=== PATIENT | female | born 1980 | race Caucasian/White ===

== ENCOUNTER → 2018-08-13 | Outpatient (CLI) | payer BC ==
--- NOTE | 2018-08-13 12:52 | MR ---
EXAMINATION TYPE: MR knee LT wo con DATE OF EXAM: 08/13/2018 COMPARISON: None HISTORY: Left knee pain TECHNIQUE: Multiplanar, multisequence imaging of the left knee is performed without IV contrast. FINDINGS: MEDIAL MENISCUS: Anterior and posterior horns are intact without tear. LATERAL MENISCUS: Anterior horn lateral meniscus is normal. There is increased signal within the post erior horn lateral meniscus may be related to some mild internal derangement. No communication with a n articular surface is evident. CRUCIATE LIGAMENTS: The anterior and posterior cruciate ligaments are intact and unremarkable. COLLATERAL LIGAMENTS: The medial collateral ligament and lateral collateral ligament complex are inta ct and unremarkable. EXTENSOR MECHANISM: Visualized quadriceps and patellar tendons are intact. EFFUSION: No significant suprapatellar joint effusion. POPLITEAL CYST: No popliteal/curiel cyst. TRICOMPARTMENT SPACES: Tricompartment joint spaces appear preserved. CARTILAGE: Preserved BONE MARROW SIGNAL: No focal abnormal marrow signal is appreciated. OTHER: No additional significant abnormality is appreciated. IMPRESSION: Mild internal derangement posterior horn medial meniscus. No communication with an articular surface is evident.
== END | disposition home or self-care (01) ==
LOC: RADMRIMAIN 06:11
PROVIDERS: ATTEND Orthopaedic Surgery
DX: M23.322 Other meniscus derangements, posterior horn of medial meniscus, left knee (principal)

== ENCOUNTER → 2019-01-05 | Outpatient (CLI) | payer OTHER | END | disposition home or self-care (01) | LOC: LABPAT 06:34 | PROVIDERS: ATTEND Orthopaedic Surgery | DX: Z01.812 Encounter for preprocedural laboratory examination (principal); M16.12 Unilateral primary osteoarthritis, left hip | CPT/HCPCS: 87070 ==

== ENCOUNTER → 2019-03-16 | Outpatient (CLI) | payer OTHER ==
[2019-03-16 08:28] LABS: Prothrombin Time 10.8 sec (9.0-12.0)
[2019-03-16 08:39] LABS: Potassium 5.1 mmol/L (3.5-5.1)
[2019-03-16 08:44] LABS: Anisocytosis Slight; Basophils # (A) 0.1 k/uL (0-0.2); Basophils % (A) 1 %; Eosinophils # (A) 0.2 k/uL (0-0.7); Eosinophils % (A) 4 %; HCT 43.7 % (34.0-46.0); HGB 13.7 gm/dL (11.4-16.0); Hypochromasia Moderate; Lymphocytes # (A) 1.6 k/uL (1.0-4.8); Lymphocytes % (A) 27 %; MCH 27.4 pg (25.0-35.0); MCHC 31.4 g/dL (31.0-37.0); MCV 87.3 fL (80.0-100.0); Mean Platelet Volume 8.7; Microcytosis Slight; Monocytes # (A) 0.3 k/uL (0-1.0); Monocytes % (A) 5 %; Neutrophils # (A) 3.7 k/uL (1.3-7.7); Neutrophils % (A) 61 %; Platelet Count 284 k/uL (150-450); Poikilocytosis Slight; RBC 5.01 m/uL (3.80-5.40); RDW 19.9 % (11.5-15.5)
== END | disposition home or self-care (01) ==
LOC: LABPAT 06:37
PROVIDERS: ATTEND Orthopaedic Surgery
DX: Z01.812 Encounter for preprocedural laboratory examination (principal); M16.12 Unilateral primary osteoarthritis, left hip
CPT/HCPCS: 36415; 80051; 85025; 85610; 86850; 86900; 86901

== ENCOUNTER 2019-03-24 06:48 | Day surgery (SDC) | payer OTHER ==
[2019-03-19 08:30] VITALS: BMI 24.2
--- NOTE | 2019-03-23 11:08 | HP ---
HISTORY AND PHYSICAL CHIEF COMPLAINT: Left hip pain. 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 She had surgery when she was a teenager. She has had progressive groin and thigh pain, worse with weightbearing activities. She notes the pain significantly limits her function and activities. She has tried medications with only partial relief. PAST MEDICAL HISTORY: Significant for hypothyroidism, depression, and anemia along with osteoarthritis. PAST SURGICAL HISTORY: Significant for gastric bypass surgery, spinal fusion, and history of fixation of a left slipped capital femoral epiphysis. CURRENT MEDICATIONS: Spironolactone, Synthroid, and Wellbutrin. ALLERGIES: SULFA. FAMILY HISTORY: Negative. SOCIAL HISTORY: Significant for previous tobacco use. 16 POINT REVIEW OF SYSTEMS: Otherwise reviewed and is noncontributory. PHYSICAL EXAMINATION: On examination, the patient is approximately 5 foot 6, 145 pounds of mesomorphic habitus. HEENT: Exam is nonfocal. Neck is supple. Passive motion left hip, flexion 70 degrees, external rotation with the hip flexed 50 degrees, internal rotation -20 degrees with pain. Clinically, she has 3 cm of shortening of the left lower extremity compared to the right. Her distal neurovascular exam appears intact in the lower extremities. X-rays to include AP of the pelvis obtained in the office show severe left hip osteoarthrosis with [id number] changes. Previous screw fixation with deformity of the femoral head and neck are noted. IMPRESSION: 1. Left hip severe osteoarthrosis. 2. History of slipped capital femoral epiphysis pinning left hip. 3. History of anemia. RECOMMENDATIONS: I talked to the patient at length regarding her condition along with treatment options. At this point, she is quite symptomatic and limited because of pain despite conservative measures. After a thorough discussion, she opts to proceed with surgery. We will plan to proceed with removal of her hardware from her left hip with subsequent total hip arthroplasty. Risks and benefits were discussed at length in layman's terms. We will institute DVT prophylaxis postoperatively. MMODL / IJN: [id number] /
[~2019-03-24 06:48] MED LIST: ACETAMINOPHEN TAB 500 MG TAB PO ONE; DEXAMETHASONE SOD PHOSPHATE 10 MG/ML 1 ML VIAL IV ONE; LIDOCAINE 1% 20 ML VIAL (10MG/ML) FOR IV START INTRADERMA PRN; MELOXICAM 7.5 MG TAB PO ONE; MIDAZOLAM 2 MG/2 ML VIAL IV PRN; ONDANSETRON 4 MG/2 ML VIAL IVP ONE; SCOPOLAMINE 1.5MG/72HR PATCH TRANSDERM ONE; TRANEXAMIC ACID 1,000 MG in SODIUM CHLORIDE 0.9% 100 ML IVPB ONE
[2019-03-24] MEDS: LACTATED RINGERS 1,000 ML IV SCH ×3 (07:37→20:42)
[2019-03-24] MEDS ORDERED: PROPOFOL 10 MG/ML 20 ML VIAL IV ONE (09:01)
[2019-03-24] MEDS ORDERED: TRANEXAMIC ACID 1,000 MG/10 ML VIAL ONE (09:01)
[2019-03-24] MEDS ORDERED: FAMOTIDINE 20 MG/2 ML VIAL ONE (09:01)
[2019-03-24] MEDS ORDERED: MIDAZOLAM 2 MG/2 ML VIAL ONE (09:01)
[2019-03-24] MEDS ORDERED: KETOROLAC 30 MG/ML 1 ML VIAL ONE (09:01)
[2019-03-24] MEDS ORDERED: LIDOCAINE 1% INJ 10MG/ML (20 ML MDV) ONE (09:01)
[2019-03-24] MEDS ORDERED: fentaNYL (PF) 50 MCG/ML 2 ML AMP ONE (09:01)
[2019-03-24] MEDS ORDERED: SODIUM CHLORIDE 0.9% 100 ML BAG ONE (09:01)
[2019-03-24] MEDS ORDERED: ceFAZolin 3,000 MG in SODIUM CHLORIDE 0.9% IRRIGATIO 3,000 ML IRRIGATION ONE (09:55)
[2019-03-24] MEDS ORDERED: LACTATED RINGERS 1,000 ML IV ONE (10:00)
[2019-03-24] MEDS ORDERED: NALOXONE 0.4 MG/ML 1 ML VIAL IV PRN (11:40)
[2019-03-24] MEDS ORDERED: HYDROmorphone 1 MG/ML 1 ML SYRINGE IVP PRN (11:40)
[2019-03-24] MEDS ORDERED: MAGNESIUM HYDROXIDE 2,400 MG/10 ML CUP PO PRN (11:40)
[2019-03-24] MEDS ORDERED: ACETAMINOPHEN TAB 325 MG TAB PO PRN (11:40)
[2019-03-24] MEDS ORDERED: ONDANSETRON 4 MG/2 ML VIAL IVP PRN (11:40)
[2019-03-24] MEDS ORDERED: HYDROcodone/APAP 7.5-325MG 1 EACH TAB PO PRN (11:40)
--- NOTE | 2019-03-24 12:00 | XR ---
Limited left hip HISTORY: Left hip arthroplasty Single intraoperative image documents the procedure.
--- NOTE | 2019-03-24 12:01 | FL ---
Fluoroscopy HISTORY: Left hip arthroplasty 11 seconds fluoroscopy time supplied to the referring clinician. 1 intraoperative C-arm images docum ent the procedure. See dictated report from orthopedic surgery.
[2019-03-24] MEDS: HYDROmorphone 0.5 MG/0.5 ML SYRINGE IVP PRN ×4 (12:12→22:44)
--- NOTE | 2019-03-24 12:18 | P.OP ---
Date of Procedure: 03/24/19 Preoperative Diagnosis: Left hip severe osteoarthrosis/retained hardware Postoperative Diagnosis: Same Procedure(s) Performed: Removal hardware left hip2 cannulated screws from the femoral head/neck/ left total hip arthroplasty/cerclage cabling proximal femur Implants: Depuy Corail size 11 KLA press-fit collared femoral stem, 32 mm +1 ceramic femoral head, 52 mm [place] acetabular shell with neutral polyethylene liner. Anesthesia: JULIANE, spinal Surgeon: Benson Carranza Folder Inspector #1: Remi Dumont Estimated Blood Loss (ml): 300 Pathology: other (Femoral head) Condition: stable Disposition: PACU Indications for Procedure: The patient's a 38-year-old female who presents with progressive left hip pain secondary to osteoarthrosis despite conservative measures. She had a history of pinning of her left hip as a teenager. A discussion of the risks and benefits of operative intervention versus continued conservative measures was made with the patient. She opted to proceed with surgery. Operative risks to include inf ection, neurovascular injury, development of blood clots, possible instability, possible fracture, possible leg length discrepancy, and possible need for subsequent procedures was discussed. Informed consent was obtained. Operative Findings: As below Description of Procedure: The patient was brought to the operating room, and after induction of spinal anesthesia, it was deemed to be incompletely therefore general anesthesia was induced and then she was placed in a lateral decubitus position. The bony prominences were appropriately padded. The pelvis was stable perpendicular to the floor with a pegboard. The left lower extremity was prepped and draped in normal fashion. A 12 cm incision was then made centered over the greater trochanter extending superiorly to level the ASIS and distally in line with the femoral shaft. The skin and subcutaneous tissues were divided sharply. Electrocautery was used for hemostasis. The fascia lala and gluteus liset fascia was split in line with the skin incision. The muscle fibers were bluntly dissected proximally. A self-retaining retractor was placed. The anterior and posterior margins of the gluteus medius muscles identified and the anterior two thirds was detached from the greater trochanter with electrocautery. The gluteus minimus tendon was identified and detached in a similar fashion. A wide capsulotomy was performed. The previous placed cannulated screws were identified and both were removed. The hip was dislocated. A femoral neck cut was made approximately 1 cm above the level of the lesser trochanter at a 45 and the shaft with a sagittal saw. The head was then extracted . Attention was then paid towards preparing the acetabular. Anterior and posterior retractors were placed. The remaining capsular labral tissues debrided sharply clearly defining the acetabular margins. Began reaming with a 45 mm reamer taking care to initially medialize, then reaming at 45 of abduction and 20 of anteversion. Sequential reaming is performed up to 51 mm. This was down to bleeding bony surface. A trial 52 mm acetabular shell was inserted at 45 of abduction and 20 of anteversion. This was fully seated. There was good rim fit and stability. A neutral polyethylene liner was then impacted. Care taken to avoid any soft tissue interposition. Attention was then paid towards preparing the proximal femur. A box chisel was used to open the metaphyseal region. A canal finder was used to find the femoral canal. Sequential broaching was performed up to a size 11. This is placed in 15 of anteversion with the leg perpendicular floor judging off the trans-epicondylar axis. There is good rotational stability. A calcar mill was used to fashion the medial calcar. A trial KLA neck along with a 32 mm + 1 trial head was placed. The hip was gently reduced. It was taken through range of motion. I felt to be stable in flexion and extension with internal and external rotation. I felt there was adequate episcopal of soft tissue tension. The hip was gently dislocated. The trial components removed. There was noted there was a small crack in the medial calcar that extended approximately 3 mm. Pulsatile lavage was utilized. The final size 11 KLA collared femoral stem was inserted again with the leg perpendicular to the floor in 15 of anteversion. Again there was good rotational stability. I did place a stainless steel cerclage cable prophylactically. A 32 mm +1 ceramic femoral head was gently impacted. The hip was gently reduced. Again it was taken through motion and felt to be stable in flexion and extension with internal and external rotation. I did check alignment with fluoroscopy. Pulsatile lavage was again utilized. With the leg in abduction the gluteus minimus and medius tendons reattached to the greater trochanter with #2 Ethibond suture. There was minimal drainage therefore a deep drain was not placed. The fascia lala and gluteus liset fascia was closed with #2 Ethibond suture. The subcutaneous tissues were reapproximated interrupted 2-0 Vicryl sutures. The skin was reapproximated with 3-0 subcuticular strata fix suture. Skin tape and adhesive was applied. A sterile dressing was applied. The patient was awoken from sedation and transferred to recovery room in good condition. Blood loss was estimated 300ml. Complications included an iatrogenic fracture of the medial calcar. Sponge and needle counts were correct in the case. Nahun MELISSA assisted during the major composes case to include exposure, implantation, and closure.
[2019-03-24] MEDS ORDERED: ONDANSETRON 4 MG/2 ML VIAL IVP ONE (12:25)
[2019-03-24] MEDS ORDERED: METOCLOPRAMIDE 5 MG/ML 2 ML VIAL IVP ONE (12:33)
--- NOTE | 2019-03-24 12:38 | XR ---
Left hip HISTORY: Status post left hip arthroplasty Single frontal view of the left hip Patient is status post left hip arthroplasty. Lucency is present in the soft tissues compatible with postop state. There is anatomic alignment. Cerclage wire present about the proximal left femur is not ed. IMPRESSION: Orthopedic follow-up.
[2019-03-24] MEDS: HYDROcodone/APAP 7.5-325MG 1 EACH TAB PO PRN (16:35)
--- NOTE | 2019-03-24 17:04 | P.CONS ---
History of Present Illness - Reason for Consult Consult date: 03/24/19 Medical management Requesting physician: Benson Carranza - Chief Complaint Left hip pain - History of Present Illness 38-year-old female with PMH of developmental dysplasia of the hip, anxiety and depression, anemia, hypothyroidism and cystic acne presents to [facility] for elective surgery. She was seen post removal of hardware in the left hip 2 cannulated screws from the femoral neck and head, left total hip arthroplasty and cerclage cabling proximal femur. [facility] [place] physicians has been consulted for medical management of this patient. Patient was seen and examined. No acute events overnight. Patient reports 8 out of 10 left hip pain that is well-controlled with current medications. Patient states that she is able to urinate freely. No bowel movement or passing gas since surgery. She denies any headaches, lower clarence edema, nausea or vomiting, fever or chills, cough, chest pain, shortness of breath, palpitations, changes in appetite. She denies any dizziness, numbness/weakness/tingling of the extremities. Review of Systems Pertinent positives and negatives as discussed in HPI, a complete review of systems was performed and all other systems are negative. Past Medical History Past Medical History: Thyroid Disorder Additional Past Medical History / Comment(s): cystic acne, severe anemia History of Any Multi-Drug Resistant Organisms: None Reported Past Surgical History: Bariatric Surgery, Orthopedic Surgery, Tubal Ligation Additional Past Surgical History / Comment(s): 3 disc spinal fusion, gastric bypass, 2 pins left hip, wisdom teeth Past Anesthesia/Blood Transfusion Reactions: Motion Sickness Past Psychological History: Anxiety, Depression Smoking Status: Former smoker Past Alcohol Use History: None Reported Additional Past Alcohol Use History / Comment(s): smoked 10-15 years 1 ppd quit 2018 Past Drug Use History: None Reported - Past Family History Mother Family Medical History: No Reported History Medications and Allergies Home Medications Medication Instructions Recorded Confirmed Type Ferrous Sulfate [Feosol] 325 mg PO DAILY 01/07/19 03/24/19 History Levothyroxine Sodium [Synthroid] 25 mcg PO DAILY 01/07/19 03/24/19 History Sertraline HCl [Zoloft] 50 mg PO DAILY 01/07/19 03/24/19 History Spironolactone [Aldactone] 25 mg PO DAILY 10/30/19 01/14/20 History buPROPion XL [Wellbutrin Xl] 300 mg PO DAILY 01/07/19 03/24/19 History Allergies Allergy/AdvReac Type Severity Reaction Status Date / Time amoxicillin Allergy Rash/Hives Verified 03/24/19 07:23 Sulfa (Sulfonamide Allergy Rash/Hives Verified 03/24/19 07:23 Antibiotics) Physical Exam Vitals: Vital Signs Temp Pulse Resp BP Pulse Ox 03/24/19 14:00 56 L 86/54 03/24/19 13:45 61 85/52 03/24/19 13:30 98.0 F 64 16 87/47 98 03/24/19 13:15 51 L 16 93/50 03/24/19 13:00 51 L 12 95/52 100 03/24/19 12:45 60 16 90/53 95 03/24/19 12:30 74 16 113/58 100 03/24/19 12:15 62 16 98/53 100 03/24/19 12:03 97.4 F L 85 12 117/53 100 03/24/19 07:24 98.2 F 71 16 109/53 99 Intake and Output 03/24/19 03/24/19 03/24/19 06:59 14:59 22:59 Intake Total 1601 Output Total 300 Balance 1301 Intake: IV 1501 Intake, IV Titration 100 Amount Lactated Ringers 1,000 ml 100 @ 100 mls/hr IV .Q10H [facility] Rx#:[id number] Output: Estimated Blood Loss 300 Other: Weight 73 kg General: [non toxic], [no distress], [appears at stated age] Derm: [warm], [dry] Head: [atraumatic], [normocephalic], [symmetric] Eyes: [EOMI], [no lid lag], [anicteric sclera] Mouth: [no lip lesion], [mucus membranes moist] Cardiovascular: [S1S2 reg], [no murmur], [positive DP pulse bilateral], Lungs: [CTA bilateral], [no rhonchi, no rales] , [no accessory muscle use] Abdominal: [soft], [ nontender to palpation], [no guarding], [no appreciable organomegaly] Ext: [no gross muscle atrophy], [no edema], [no contractures], [left hip re stricted range of motion due to pain, lateral dressing clean dry and intact] Neuro: [ CN II-XI grossly intact], [no focal neuro deficits] Psych: [Alert], [oriented], [appropriate affect] Assessment and Plan Assessment: Anxiety and depression Anemia Hypothyroidism Cystic acne Left hip severe osteoarthritis post hardware removal, left total hip arthroplasty and cerclage POD 0 We will continue her home medications. Bupropion and sertraline will be restarted for anxiety and depression. She will be given iron sulfate daily for anemia. Synthroid will be resumed for hypothyroidism. Aldactone is resumed for cystic acne. Plans to repeat CBC tomorrow morning. Patient is to work with physical therapy. Pain is currently well controlled on [place] and Dilaudid. Plans for Xarelto for DVT prophylaxis. Likely DC in 1-2 days. DVT prophylaxis: [Xarelto] Discussed with: [Patient] Anticipated discharge: [1-2 days] Anticipated discharge place: [Home] A total of [35] minutes was spent on the care of this complex patient more than 50% of the time was spent in counseling and care coordination. Patient names her mother Jefferson decision maker if she can't make decisions for herself. Patient would like to be full code. Thank you for this consult. Please call with any additional questions or concerns.
[2019-03-24] MEDS ORDERED: SODIUM CHLORIDE 0.9% 1,000 ML IV ONE ×2 (19:31→21:53)
[2019-03-24] MEDS: traMADol 50 MG TAB PO PRN (20:15)
[2019-03-24] MEDS ORDERED: SENNOSIDES-DOCUSATE SODIUM 1 EACH TAB PO SCH (21:00)
[2019-03-25] MEDS: HYDROcodone/APAP 7.5-325MG 1 EACH TAB PO PRN ×3 (00:08→11:02)
[2019-03-25] MEDS ORDERED: LEVOTHYROXINE 25 MCG TAB PO SCH (06:30)
[2019-03-25 07:00] LABS: Anisocytosis Slight; Basophils % (A) 0 %; Eosinophils # (A) 0.1 k/uL (0-0.7); Eosinophils % (A) 2 %; HCT 29.6 % (34.0-46.0); Hypochromasia Moderate; Lymphocytes # (A) 1.5 k/uL (1.0-4.8); Lymphocytes % (A) 34 %; MCH 28.7 pg (25.0-35.0); MCHC 32.7 g/dL (31.0-37.0); MCV 87.8 fL (80.0-100.0); Mean Platelet Volume 9.1; Microcytosis Slight; Monocytes # (A) 0.3 k/uL (0-1.0); Monocytes % (A) 6 %; Neutrophils # (A) 2.5 k/uL (1.3-7.7); Neutrophils % (A) 57 %; Platelet Count 173 k/uL (150-450); Poikilocytosis Slight; RBC 3.37 m/uL (3.80-5.40); RDW 18.7 % (11.5-15.5); WBC 4.5 k/uL (3.8-10.6)
[2019-03-25 07:25] LABS: HGB 9.7 gm/dL (11.4-16.0)
[2019-03-25 07:49] VITALS: BP 94/59; PULSE 64; RESP 12; TEMP 98.1
[2019-03-25] MEDS: traMADol 50 MG TAB PO PRN (08:06)
[2019-03-25] MEDS ORDERED: RIVAROXABAN 10 MG TAB PO SCH (09:00)
[2019-03-25] MEDS ORDERED: buPROPion XL 300 MG TAB.ER.24H PO SCH (09:00)
[2019-03-25] MEDS ORDERED: SERTRALINE 50 MG TAB PO SCH (09:00)
[2019-03-25] MEDS ORDERED: FAMOTIDINE 20 MG TAB PO SCH (09:00)
[2019-03-25] MEDS ORDERED: SPIRONOLACTONE 25 MG TAB PO SCH (09:00)
--- NOTE | 2019-03-25 11:29 | P.PN ---
Subjective Progress Note Date: 03/25/19 Principal diagnosis: Status post hardware removal left hip, left total hip arthroplasty Patient evaluated today at bedside, she is resting comfortably. She did have increase in pain this morning when ambulating with therapy. She denies any chest pain or shortness of breath. Objective - Vital Signs Vital signs: Vital Signs Temp 98.1 F 03/25/19 07:00 Pulse 64 03/25/19 07:00 Resp 12 03/25/19 07:00 BP 94/59 03/25/19 07:00 Pulse Ox 100 03/25/19 07:00 Intake & Output 03/24/19 03/25/19 03/25/19 18:59 06:59 18:59 Intake Total 1601 2700 Output Total 300 Balance 1301 2700 Weight 73 kg Intake: IV 1501 Intake, IV Titration 100 2700 Amount Lactated Ringers 1,000 ml 100 700 @ 100 mls/hr IV .Q10H [facility] Rx#:[id number] Sodium Chloride 0.9% 1, 1000 000 ml @ 999 mls/hr IV . Q1H1M [facility] Rx#:[id number] Sodium Chloride 0.9% 1, 1000 000 ml @ 999 mls/hr IV . Q1H1M [facility] Rx#:[id number] Output: Estimated Blood Loss 300 Other: Voiding Method Toilet Toilet # Voids 4 - Exam Left lower extremity: Incision is clean, dry, and intact. The exofin fusion tape is in good condition. There is minimal soft tissue swelling and ecchymosis surrounding the medial and lateral aspects of the incision. Calf is soft, no tenderness with palpation. Plantar flexion, dorsiflexion, EHL, FHL are intact. Sensory exam to light touch throughout the extremity is intact, dorsal pedis pulses 2+. - Labs CBC & Chem 7: 03/25/19 06:20 Labs: Abnormal Lab Results - Last 24 Hours (Table) 03/25/19 Range/Units 06:20 RBC 3.37 L (3.80-5.40) m/uL Hgb 9.7 L D (11.4-16.0) gm/dL Hct 29.6 L (34.0-46.0) % RDW 18.7 H (11.5-15.5) % Assessment and Plan Plan: Assessment: Postoperative day #1 status post left total hip arthroplasty, hardware removal left hip Plan: Pain control, plan for discharge on oral medication GI and DVT prophylaxis, Eliquis 2.5mg bid Wound care instructions discussed Home physical therapy and nursing after discharge Medical recommendations Discharge planning: Plan for discharge home today Time with Patient: Less than 30
--- NOTE | 2019-03-25 11:39 | P.DS ---
Providers Date of admission: 03/24/2019 Expected date of discharge: 03/25/19 Attending physician: Benson Carranza Consults: 03/24/19 11:40 Consult Physician Routine Consulting Provider: Verenice Hemphill Consult Reason/Comments: medical management Do you want consulting provider notified?: Yes Primary care physician: Asa Schmitt [facility] Course: Date of admission: 03/24/2019 Date of discharge: 03/25/2019 Admission diagnosis: Status post hardware removal left hip, left total hip arthroplasty Discharge diagnosis: Same Attending physician: Dr. Carranza Surgical procedures: Hardware removal left hip, left total hip arthroplasty Brief history: Patient is a 38-year-old female with a history of a previous left hip procedure, she had developed significant arthritis involving her left hip. At this point patient has failed conservative treatment measures and has opted to proceed with a elective hardware removal and left total knee arthroplasty. Hospital course: Details of patient's surgery can be found in operative report. Patient tolerated the procedure well and was subsequently transported to orthopedic floor. Patient's orthopeidc and medical care was provided daily. Patient had daily laboratory tests performed for evaluation of overall blood counts. Patient had daily physical therapy to include strengthening range of motion as well as education with walker ambulation. Patient was treated with Lovenox for their postoperative DVT prophylaxis during their inpatient stay. Patient was noted to have a relatively uneventful postoperative course. Patient reported satisfactory pain control with oral pain medications by postoperative day 0. Patient showed satisfactory progress with physical therapy. Patient moved steadily through the program and had no difficulty meeting the goals by postoperative day 1. Given patient's otherwise satisfactory course and having met physical therapy goals, plan is to discharge patient home on postoperative day 1. Discharge condition/disposition: Patient will be discharged home in stable condition. Discharge medications: Instructions are given on resumption of patient's normal daily medications per primary care recommendation, in addition patient will be prescribed [place] 7.5 mg/325 mg, tramadol 50 mg, Colace 100 mg, Eliquis 2.5mg. Discharge instructions: 1. Wound care and infection precautions, keep incision dry and covered while showering, no lotions, creams, moisturizers. No soaking, tubs, pools, hottubs. Do not scrub over the incision. 2. Weight-bear as tolerate] with walker / cane until follow-up. 3. Ice and elevate when necessary. Do not exceed 20 minutes per hour with ice pack. 4. Utilize compression sleeve until seen at first follow up appointment. 5. Visiting nursing care. 6. Home physical therapy 7. Pain meds and anticoagulants per prescription. 8. Pain medication has potential to cause constipation. Increase oral fluid and fiber intake. Contact primary care provider if you have not had a bowel movement within 48 hours after discharge 9. No anti-inflammatory medication until discussed at first post operative visit, this including Motrin, Aleve, Mobic, Diclofenac 10. Follow up in office at 2 weeks postop with Nahun Dumont PA-C 11. Follow up with your primary care doctor 7-10 days after discharge. 12. Contact [facility] with any questions, . Procedures: Hardware removal left hip, left total hip arthroplasty Patient Condition at Discharge: Good Plan - Discharge Summary Discharge Rx Participant: No New Discharge Prescriptions: New Docusate [Colace] 100 mg PO DAILY #30 capsule Apixaban [Eliquis] 2.5 mg PO BID #60 tab HYDROcodone/APAP 7.5-325MG [[place] 7.5] 1 - 2 each PO Q6HR PRN #56 tab PRN Reason: Pain traMADol HCl [Ultram] 50 mg PO Q6H PRN #28 tab PRN Reason: Pain No Action buPROPion XL [Wellbutrin Xl] 300 mg PO DAILY Spironolactone [Aldactone] 25 mg PO DAILY Sertraline HCl [Zoloft] 50 mg PO DAILY Levothyroxine Sodium [Synthroid] 25 mcg PO DAILY Ferrous Sulfate [Feosol] 325 mg PO DAILY Discharge Medication List Ferrous Sulfate [Feosol] 325 mg PO DAILY 01/07/19 [History] Levothyroxine Sodium [Synthroid] 25 mcg PO DAILY 01/07/19 [History] Sertraline HCl [Zoloft] 50 mg PO DAILY 01/07/19 [History] Spironolactone [Aldactone] 25 mg PO DAILY 01/07/19 [History] buPROPion XL [Wellbutrin Xl] 300 mg PO DAILY 01/07/19 [History] Apixaban [Eliquis] 2.5 mg PO BID #60 tab 03/25/19 [Rx] Docusate [Colace] 100 mg PO DAILY #30 capsule 03/25/19 [Rx] HYDROcodone/APAP 7.5-325MG [[place] 7.5] 1 - 2 each PO Q6HR PRN #56 tab 03/25/19 [Rx] traMADol HCl [Ultram] 50 mg PO Q6H PRN #28 tab 03/25/19 [Rx] Follow up Appointment(s)/Referral(s): [facility], [NON-STAFF] - As Needed Edwina Rizvi [NON-STAFF] - As Needed (trevin) Remi Dumont PAC [PHYSICIAN SEATING AND MOBILITY TECHNOLOGIST] - 2 Weeks Activity/Diet/Wound Care/Special Instructions: Orthopedic Discharge Instructions: 1. Wound care and infection precautions, keep incision dry and covered while showering, no lotions, creams, moisturizers. No soaking, pools, hot tubs. Do not scrub over incision. 2. Weight-bear as tolerated with walker / cane until follow-up. 3. Ice and elevate when necessary. Do not exceed 20 minutes per hour with ice pack. 4. Utilize compression sleeve until seen at first follow up appointment. 5. Pain meds and anticoagulants per prescription. 6. Pain medication has potential to cause constipation. Increase oral fluid and fiber intake. Contact primary care provider if you have not had a bowel movement within 48 hours after discharge. 7. No anti-inflammatory medication until discussed at first post operative visit, this including Motrin, Aleve, Mobic, Diclofenac. 8. Follow up in office at 2 weeks postop with Nahun Dumont PA-C 9. Follow up with your primary care doctor 7-10 days after discharge. 10. Contact [facility] with any questions, . Discharge Disposition: HOME WITH HOME HEALTH SERVICES
[2019-03-25] MEDS ORDERED: FERROUS SULFATE 325 MG TAB PO SCH (12:30)
== END 2019-03-25 13:37 | disposition home health service (06) ==
LOC: ORWHC2ENDO 06:48 → EDSTATUS 08:00 → 4SSUR 12:09 → ORWHC2ENDO 03-25 13:37
PROVIDERS: ATTEND Orthopaedic Surgery
DX: M16.12 Unilateral primary osteoarthritis, left hip (principal); T84.84XA Pain due to internal orthopedic prosthetic devices, implants and grafts, initial encounter; E03.9 Hypothyroidism, unspecified; J45.909 Unspecified asthma, uncomplicated; D50.9 Iron deficiency anemia, unspecified; F41.9 Anxiety disorder, unspecified; F32.9 Major depressive disorder, single episode, unspecified; Z98.84 Bariatric surgery status; Z98.1 Arthrodesis status; Z98.51 Tubal ligation status; Z80.9 Family history of malignant neoplasm, unspecified; Z80.49 Family history of malignant neoplasm of other genital organs; Z87.891 Personal history of nicotine dependence; Z79.890 Hormone replacement therapy; Z79.899 Other long term (current) drug therapy; Z88.0 Allergy status to penicillin; Z88.2 Allergy status to sulfonamides
CPT/HCPCS: 97161; 81025; 86900; 86901; 88305; 85025; 86850; 88311; 73501; 27130; C1713; C1776; J2250; J1100; J2765; J0690 ×3; J2405; J2001; J3010; J1885; J2704; J1170; 86891

== ENCOUNTER 2023-11-20 08:00 | Emergency (ER) | payer BC, OTHER ==
[2023-11-20 08:10] VITALS: RESP 18
--- NOTE | 2023-11-20 08:37 | ED ---
General Adult HPI - General Chief complaint: Upper Respiratory Infection Stated complaint: Congestion/Headache Time Seen by Provider: 11/20/23 08:05 Source: patient Mode of arrival: ambulatory Limitations: no limitations - History of Present Illness Initial comments: Dictation was produced using [employer] dictation software. please excuse any grammatical, word or spelling errors. Chief Complaint: 43-year-old female presents emergency department for hemoptysis History of Present Illness: Patient is a 43-year-old female presents to the emergency department for hemoptysis. Patient states she has been coughing since yesterday. Patient has been feeling and has a mild headache. Patient states she was coughing this morning and noticed that there was some blood mixed with sputum denies any chest pain. Patient is been coughing since yesterday. Denies any anticoagulation medications. No significant comorbidities. Denies any fever or constitutional symptoms. The ROS documented in this emergency department record has been reviewed and confirmed by me. Those systems with pertinent positive or negative responses have been documented in the HPI. All other systems are other negative and/or noncontributory. - Related Data Home Medications Medication Instructions Recorded Confirmed Ferrous Sulfate [Iron (65 MG 325 mg PO DAILY 01/07/19 03/24/19 Elemental)] Levothyroxine Sodium [Synthroid] 25 mcg PO DAILY 01/07/19 03/24/19 Sertraline HCl [Zoloft] 50 mg PO DAILY 01/07/19 03/24/19 Spironolactone [Aldactone] 25 mg PO DAILY 01/07/19 03/24/19 buPROPion XL [Wellbutrin XL] 300 mg PO DAILY 01/07/19 03/24/19 Previous Rx's Medication Instructions Recorded Apixaban [Eliquis] 2.5 mg PO BID #60 tab 03/25/19 Docusate [Colace] 100 mg PO DAILY #30 capsule 03/25/19 HYDROcodone/APAP 7.5-325MG [[place] 1 - 2 each PO Q6HR PRN #56 tab 03/25/19 7.5] traMADol HCl [Ultram] 50 mg PO Q6H PRN #28 tab 03/25/19 Allergies Allergy/AdvReac Type Severity Reaction Status Date / Time amoxicillin Allergy Rash/Hives Verified 11/20/23 08:06 Sulfa (Sulfonamide Allergy Rash/Hives Verified 11/20/23 08:06 Antibiotics) Review of Systems ROS Statement: Those systems with pertinent positive or pertinent negative responses have been documented in the HPI. ROS Other: All systems not noted in ROS Statement are negative. Past Medical History Past Medical History: No Reported History History of Any Multi-Drug Resistant Organisms: None Reported Past Surgical History: Orthopedic Surgery Additional Past Surgical History / Comment(s): gastric bypass, Past Psychological History: No Psychological Hx Reported Smoking Status: Current every day smoker Past Alcohol Use History: Occasional Past Drug Use History: Marijuana General Exam - General Exam Comments Initial Comments: PHYSICAL EXAM: General Impression: Alert and oriented x3, not in acute distress HEENT: Normocephalic atraumatic, extra-ocular movements intact, pupils equal and reactive to light bilaterally, mucous membranes moist. Cardiovascular: Heart regular rate and rhythm Chest: Able to complete full sentences, no retractions, no tachypnea Abdomen: abdomen soft, non-tender, non-distended, no organomegaly Musculoskeletal: Pulses present and equal in all extremities, no peripheral edema Motor: no focal deficits noted Neurological: CN II-XII grossly intact, no focal motor or sensory deficits noted Skin: Intact with no visualized rashes Psych: Normal affect and mood Limitations: no limitations Course Vital Signs 11/20/23 11/20/23 08:03 08:07 Temperature 97.8 F Pulse Rate 97 Respiratory 20 18 Rate Blood Pressure 117/61 O2 Sat by Pulse 99 Oximetry Medical Decision Making - Medical Decision Making Was pt. sent in by a medical professional or institution (EBLÉN Wolfe, DIGITAL ADVISOR, urgent care, hospital, or senior care...) When possible be specific @ -No Did you speak to anyone other than the patient for history (EMS, parent, family, police, friend...)? What history was obtained from this source @ -No Did you review nursing and triage notes (agree or disagree)? Why? @ -I reviewed and agree with nursing and triage notes Were old charts reviewed (outside hosp., previous admission, EMS record, old EKG, old radiological studies, urgent care reports/EKG's, senior care records)? Report findings @ -No old charts were reviewed Differential Diagnosis (chest pain, altered mental status, abdominal pain women, abdominal pain men, vaginal bleeding, musculoskeletal, weakness, fever, dyspnea, syncope, headache, dizziness, GI bleed, back pain, seizure, CVA, palpatations, mental health)? @ -Lung mass, Becky-Cr, pulmonary embolism EKG interpreted by me (3pts min.). @ -None done X-rays interpreted by me (1pt min.). @ -Chest x-ray shows no acute processes CT interpreted by me (1pt min.). @ -None done U/S interpreted by me (1pt. min.). @ -None done What testing was considered but not performed or refused? (CT, X-rays, U/S, labs)? Why? @ -None What meds were considered but not given or refused? Why? @ -None Was smoking cessation discussed for >3mins.? @ -No Were there social determinants of health that impacted care today? How? ( Homelessness, low income, unemployed, alcoholism, drug addiction, transportation, low edu. Level, literacy, decrease access to med. care, usp, rehab)? @ -No Was there de-escalation of care discussed even if they declined (Discuss DNR or withdrawal of care, Hospice)? DNR status @ -No What co-morbidities impacted this encounter? (DM, HTN, Smoking, COPD, CAD, Cancer, CVA, ARF, Chemo, Hep., AIDS, mental health diagnosis, sleep apnea, morbid obesity)? @ -None Was patient admitted / discharged? Hospital course, mention meds given and route, prescriptions, significant lab abnormalities, going to OR and other pertinent info. @ -43-year-old female presents with URI symptoms accompanied by hemoptysis since this morning. Vital signs stable. Patient has no high risk features. She does not take anticoagulation medications. Patient well-appearing at the bedside with clear lungs auscultation. Laboratory evaluation is unremarkable. Viral testing is negative. X-ray is nonacute. Patient reevaluated at bedside after 1 L of fluids at 9:48 AM found to be still medical condition. Patient dis charged advised follow-up with primary care doctor. Patient given cough suppressant medication. Return precautions discussed. Did you discuss the management of the patient with other professionals ( professionals i.e. , PA, DIGITAL ADVISOR, lab, RT, psych nurse, web content & social media manager, press feeder broomcorn, teacher, community service officer coordinator, case operator)? Give summary @ -No Was critical care preformed (if so, how long)? @ -No Undiagnosed new problem with uncertain prognosis? @ -No Drug Therapy requiring intensive monitoring for toxicity (Heparin, Nitro, Insulin, Cardizem)? @ -No Were any procedures done? @ -No Diagnosis/symptom? Acute, or Chronic, or Acute on Chronic? Uncomplicated (without systemic symptoms) or Complicated (systemic symptoms)? @ -Hemoptysis, URI Side effects of treatment? @ -No Exacerbation, Progression, or Severe Exacerbation? @ -No Poses a threat to life or bodily function? How? (Chest pain, [place], [place], pneumonia, PE, COPD, DKA, ARF, appy, cholecystitis, CVA, Diverticulitis, Homicidal, Suicidal, threat to staff... and all critical care pts) @ -No - Lab Data Result diagrams: 11/20/23 08:43 11/20/23 08:43 Lab Results 11/20/23 11/20/23 11/20/23 Range/Units 08:43 08:43 08:43 WBC 8.7 (3.8-10.6) k/uL RBC 3.32 L (3.80-5.40) m/uL Hgb 9.3 L (11.4-16.0) gm/dL Hct 28.3 L (34.0-46.0) % MCV 85.4 (80.0-100.0) fL MCH 28.0 (25.0-35.0) pg MCHC 32.8 (31.0-37.0) g/dL RDW 15.0 (11.5-15.5) % Plt Count 303 (150-450) k/uL MPV 9.8 Neutrophils % 70 % Lymphocytes % 21 % Monocytes % 4 % Eosinophils % 3 % Basophils % 1 % Neutrophils # 6.0 (1.3-7.7) k/uL Lymphocytes # 1.9 (1.0-4.8) k/uL Monocytes # 0.4 (0-1.0) k/uL Eosinophils # 0.2 (0-0.7) k/uL Basophils # 0.1 (0-0.2) k/uL PT 11.0 (10.0-12.5) sec INR 1.0 (<1.2) APTT 23.6 (22.0-30.0) sec Sodium 132 L (137-145) mmol/L Potassium 4.6 (3.5-5.1) mmol/L Chloride 106 (98-107) mmol/L Carbon Dioxide 20 L (22-30) mmol/L Anion Gap 6 mmol/L BUN 30 H (7-17) mg/dL Creatinine 0.56 (0.52-1.04) mg/dL Est GFR (CKD-EPI)AfAm >90 (>60 ml/min/1.73 sqM) Est GFR (CKD-EPI)NonAf >90 (>60 ml/min/1.73 sqM) Glucose 91 (74-99) mg/dL Calcium 8.4 (8.4-10.2) mg/dL Influenza Type A (PCR) (Not Detectd) Influenza Type B (PCR) (Not Detectd) RSV (PCR) (Not Detectd) SARS-CoV-2 (PCR) (Not Detectd) 11/20/23 Range/Units 08:43 WBC (3.8-10.6) k/uL RBC (3.80-5.40) m/uL Hgb (11.4-16.0) gm/dL Hct (34.0-46.0) % MCV (80.0-100.0) fL MCH (25.0-35.0) pg MCHC (31.0-37.0) g/dL RDW (11.5-15.5) % Plt Count (150-450) k/uL MPV Neutrophils % % Lymphocytes % % Monocytes % % Eosinophils % % Basophils % % Neutrophils # (1.3-7.7) k/uL Lymphocytes # (1.0-4.8) k/uL Monocytes # (0-1.0) k/uL Eosinophils # (0-0.7) k/uL Basophils # (0-0.2) k/uL PT (10.0-12.5) sec INR (<1.2) APTT (22.0-30.0) sec Sodium (137-145) mmol/L Potassium (3.5-5.1) mmol/L Chloride (98-107) mmol/L Carbon Dioxide (22-30) mmol/L Anion Gap mmol/L BUN (7-17) mg/dL Creatinine (0.52-1.04) mg/dL Est GFR (CKD-EPI)AfAm (>60 ml/min/1.73 sqM) Est GFR (CKD-EPI)NonAf (>60 ml/min/1.73 sqM) Glucose (74-99) mg/dL Calcium (8.4-10.2) mg/dL Influenza Type A (PCR) Not Detected (Not Detectd) Influenza Type B (PCR) Not Detected (Not Detectd) RSV (PCR) Not Detected (Not Detectd) SARS-CoV-2 (PCR) Not Detected (Not Detectd) Disposition Clinical Impression: Hemoptysis Disposition: HOME SELF-CARE Condition: Good Instructions (If sedation given, give patient instructions): Coughing Up Blood (Hemoptysis) (ED) Is patient prescribed a controlled substance at d/c from ED?: No Referrals: None,Stated [Primary Care Provider] - 1-2 days Time of Disposition: 09:49
[2023-11-20] MEDS: SODIUM CHLORIDE 0.9% 1,000 ML IV STA (08:45)
[2023-11-20 08:53] LABS: Basophils # (A) 0.1 k/uL (0-0.2); Basophils % (A) 1 %; Eosinophils # (A) 0.2 k/uL (0-0.7); Eosinophils % (A) 3 %; HCT 28.3 % (34.0-46.0); HGB 9.3 gm/dL (11.4-16.0); Lymphocytes # (A) 1.9 k/uL (1.0-4.8); Lymphocytes % (A) 21 %; MCHC 32.8 g/dL (31.0-37.0); MCV 85.4 fL (80.0-100.0); Mean Platelet Volume 9.8; Monocytes # (A) 0.4 k/uL (0-1.0); Monocytes % (A) 4 %; Neutrophils % (A) 70 %; Platelet Count 303 k/uL (150-450); RBC 3.32 m/uL (3.80-5.40); WBC 8.7 k/uL (3.8-10.6)
[2023-11-20 09:02] LABS: Partial Thromboplastin Time 23.6 sec (22.0-30.0)
--- NOTE | 2023-11-20 09:09 | XR ---
EXAMINATION TYPE: XR chest 2V DATE OF EXAM: 11/20/2023 COMPARISON: None HISTORY: 43-year-old female cough and hemoptysis TECHNIQUE: PA and lateral views FINDINGS: The cardiomediastinal silhouette, aorta, and pulmonary vasculature are within normal limits. Lungs an d pleural spaces are clear. IMPRESSION: No acute cardiopulmonary process.
[2023-11-20 09:21] LABS: Sodium 132 mmol/L (137-145)
[2023-11-20 09:22] LABS: African American GFR (CKD) >90 (>60 ml/min/1.73 sqM); Anion Gap 6 mmol/L; Blood Urea Nitrogen 30 mg/dL (7-17); Calcium 8.4 mg/dL (8.4-10.2); Carbon Dioxide 20 mmol/L (22-30); Chloride 106 mmol/L (98-107); Glucose 91 mg/dL (74-99); Non-African American GFR(CKD) >90 (>60 ml/min/1.73 sqM); Potassium 4.6 mmol/L (3.5-5.1)
[2023-11-20 10:03] VITALS: BP 98/62; PULSE 89; TEMP 98.1
== END 2023-11-20 10:02 | disposition home or self-care (01) ==
LOC: EC 08:00
CPT/HCPCS: 36415; 71046; 80048; 85025; 85610; 85730; 87636; 96360; 99283

== ENCOUNTER 2023-11-22 10:55 | Emergency (ER) | payer BC ==
--- NOTE | 2023-11-22 11:13 | ED ---
GI Bleed HPI - General Chief complaint: GI Bleed Stated complaint: Rectal bleeding,Dizziness Time Seen by Provider: 11/22/23 11:13 Source: patient, RN notes reviewed Mode of arrival: ambulatory Limitations: no limitations - History of Present Illness Initial comments: 43-year-old female with history of Basilio-en-Y gastric bypass presents emergency department chief complaint of dark and tarry and bloody stools over the past few days. Patient states that she is also been feeling lightheaded and dizzy with exertion. Patient endorses mild diffuse abdominal pain. She had an episode of hematemesis a few days ago when she was evaluated emergency department for congestion however denies recent history of hematemesis or coffee-ground emesis. Patient denies history of peptic ulcer disease, diverticulosis. Denies chronic alcohol use. States that she does take Motrin frequently for her chronic back pain. - Related Data Home Medications Medication Instructions Recorded Confirmed No Known Home Medications 11/22/23 11/22/23 Allergies Allergy/AdvReac Type Severity Reaction Status Date / Time amoxicillin Allergy Rash/Hives Verified 11/20/23 08:06 Sulfa (Sulfonamide Allergy Rash/Hives Verified 11/20/23 08:06 Antibiotics) Review of Systems ROS Statement: Those systems with pertinent positive or pertinent negative responses have been documented in the HPI. ROS Other: All systems not noted in ROS Statement are negative. Past Medical History Past Medical History: No Reported History History of Any Multi-Drug Resistant Organisms: None Reported Past Surgical History: Bariatric Surgery, Orthopedic Surgery Additional Past Surgical History / Comment(s): gastric bypass, left hip repla cement Past Psychological History: No Psychological Hx Reported Smoking Status: Current every day smoker Past Alcohol Use History: Occasional Past Drug Use History: Marijuana General Exam Limitations: no limitations General appearance: alert, in no apparent distress Head exam: Present: atraumatic, normocephalic, normal inspection ENT exam: Present: normal exam, mucous membranes moist Neck exam: Present: normal inspection. Absent: tenderness, meningismus, lymphadenopathy Respiratory exam: Present: normal lung sounds bilaterally. Absent: respiratory distress, wheezes, rales, rhonchi, stridor Cardiovascular Exam: Present: regular rate, normal rhythm, normal heart sounds. Absent: systolic murmur, diastolic murmur, rubs, gallop, clicks GI/Abdominal exam: Present: soft, tenderness (diffuse), normal bowel sounds. Absent: distended, guarding, rebound, rigid Rectal exam: Present: normal inspection, normal rectal tone, heme (+) stool, bloody stool, other (maroon colored stool) Extremities exam: Present: normal inspection, full ROM, normal capillary refill. Absent: tenderness, pedal edema, joint swelling, calf tenderness Back exam: Present: normal inspection Neurological exam: Present: alert, oriented X3, CN II-XII intact Skin exam: Present: warm, dry, intact, normal color. Absent: rash Course Vital Signs 11/22/23 11/22/23 11/22/23 11:02 14:17 14:18 Temperature 98.4 F Pulse Rate 93 94 92 Respiratory 16 15 16 Rate Blood Pressure 107/60 102/55 O2 Sat by Pulse 99 100 Oximetry 11/22/23 11/22/23 11/22/23 14:20 14:30 14:40 Temperature Pulse Rate 90 93 89 Respiratory 10 L 13 10 L Rate Blood Pressure O2 Sat by Pulse Oximetry 11/22/23 11/22/23 11/22/23 14:50 15:00 15:11 Temperature Pulse Rate 91 90 110 H Respiratory 9 L 20 19 Rate Blood Pressure O2 Sat by Pulse Oximetry 11/22/23 11/22/23 11/22/23 15:20 15:30 15:40 Temperature Pulse Rate 97 87 87 Respiratory 10 L 10 L 9 L Rate Blood Pressure O2 Sat by Pulse Oximetry 11/22/23 11/22/23 11/22/23 15:43 15:50 15:52 Temperature 98.9 F 98.4 F Pulse Rate 89 90 90 Respiratory 16 7 L 18 Rate Blood Pressure 97/49 97/49 86/59 O2 Sat by Pulse 100 100 100 Oximetry 11/22/23 11/22/23 11/22/23 16:00 16:10 16:12 Temperature 98.6 F Pulse Rate 96 91 89 Respiratory 22 6 L 18 Rate Blood Pressure 86/59 86/59 99/50 O2 Sat by Pulse 100 100 100 Oximetry 11/22/23 11/22/23 11/22/23 16:20 16:30 16:40 Temperature Pulse Rate 89 96 88 Respiratory 9 L 15 15 Rate Blood Pressure 99/50 99/50 99/50 O2 Sat by Pulse 100 100 100 Oximetry 11/22/23 11/22/23 11/22/23 16:48 16:50 17:00 Temperature 98.5 F Pulse Rate 96 89 85 Respiratory 18 20 14 Rate Blood Pressure 99/63 99/63 99/63 O2 Sat by Pulse 100 100 100 Oximetry 11/22/23 11/22/23 11/22/23 17:10 17:14 17:20 Temperature 98.1 F Pulse Rate 86 84 87 Respiratory 7 L 18 7 L Rate Blood Pressure 99/63 99/50 104/41 O2 Sat by Pulse 100 100 100 Oximetry 11/22/23 11/22/23 17:30 18:13 Temperature 98.4 F Pulse Rate 84 88 Respiratory 14 16 Rate Blood Pressure 104/41 106/45 O2 Sat by Pulse 100 100 Oximetry Medical Decision Making - Medical Decision Making Was pt. sent in by a medical professional or institution (, PA, CLEANING AND MAINTENANCE WORKER, urgent care, hospital, or [facility]...) When possible be specific @ -No Did you speak to anyone other than the patient for history (EMS, parent, family, police, friend...)? What history was obtained from this source @ -Patient's boyfriend is at bedside states that she takes Motrin relatively frequently for chronic back pain and recent dental procedure Did you review nursing and triage notes (agree or disagree)? Why? @ -I reviewed and agree with nursing and triage notes Were old charts reviewed (outside hosp., previous admission, EMS record, old EKG, old radiological studies, urgent care reports/EKG's, [facility] records)? Report findings @ -Reviewed the patient's emergency department visit from 11/20/2023 where she presented for hemoptysis and upper respiratory infection symptoms discharged home in stable condition with hemoptysis and instructed to follow-up with her primary care provider Chest x-ray from 11/20/2023 no acute cardiopulmonary process. Differential Diagnosis (chest pain, altered mental status, abdominal pain women, abdominal pain men, vaginal bleeding, weakness, fever, dyspnea, syncope, headache, dizziness, GI bleed, back pain, seizure, CVA, palpatations, mental health, musculoskeletal)? @ -Differential GI Bleed: Esophageal varices, aortoenteric fistula, Becky-Cr, gastritis, peptic ulcer disease, diverticulosis, inflammatory bowel disease, hemorrhoids, fissure, colitis, malignancy, Meckel's diverticulum, this is not meant to be an all- inclusive list. EKG interpreted by me (3pts min.). @ -None X-rays interpreted by me (1pt min.). @ -None done CT interpreted by me (1pt min.). @ -CT of the abdomen and pelvis revealed postsurgical changes of the bowel witho ut evidence for acute process with no evidence for obstruction. U/S interpreted by me (1pt. min.). @ -None done What testing was considered but not performed or refused? (CT, X-rays, U/S, labs)? Why? @ -None What meds were considered but not given or refused? Why? @ -None Did you discuss the management of the patient with other professionals (professionals i.e. , PA, CLEANING AND MAINTENANCE WORKER, lab, RT, psych nurse, social welfare administrator, brand sales manager, teacher, navigation officer, wrapper caser)? Give summary @ -i spoke with ED physician at [facility] Dr. Joyce, in regard to the patient's case and presentation, patient will be transferred for further evaluation with GI specialist. Was smoking cessation discussed for >3mins.? @ -No Was critical care preformed (if so, how long)? @ -No Were there social determinants of health that impacted care today? How? (Homelessness, low income, unemployed, alcoholism, drug addiction, transportation, low edu. Level, literacy, decrease access to med. care, fdc, rehab)? @ -No Was there de-escalation of care discussed even if they declined (Discuss DNR or withdrawal of care, Hospice)? DNR status @ -No What co-morbidities impacted this encounter? (DM, HTN, Smoking, COPD, CAD, Cancer, CVA, ARF, Chemo, Hep., AIDS, mental health diagnosis, sleep apnea, morbid obesity)? @ -None Was patient admitted / discharged? Hospital course, mention meds given and route, prescriptions, significant lab abnormalities, going to OR and other pertinent info. @ -transferred. 43-year-old female with bright red blood per rectum and dark and tarry stools. On initial evaluation patient is resting comfortably no signs acute distress. Patient's blood pressure is mildly hypotensive of 70/60, nontachycardic, afebrile. Patient is symptomatically treated with a liter fluid bolus pending labs and CT imaging. She is in agreement with this plan. Alerted by nursing staff that patient's hemoglobin is 5.2 and hematocrit is 15.8 and 2 units of PRBCs ordered. CMP reveals hyponatremia of 134, 123, creatinine 0.68, lactate nonelevated at 0.9, amylase lipase within normal limits, also remarkable for large leukocyte esterase and white blood cells. CT unremarkable for acute process. Rectal examination reveals maroon-colored blood. Due to patient's low hemoglobin and drop within the past 2 days she will be transferred to a facility with gastrointestinal coverage at [facility]. Patient is accepted for transfer by Dr. Weiner, in the ED for GI bleeding with low hgb. discussed with Dr. Garcia Undiagnosed new problem with uncertain prognosis? @ -No Drug Therapy requiring intensive monitoring for toxicity (Heparin, Nitro, Insulin, Cardizem)? @ -No Were any procedures done? @ -No Diagnosis/symptom? @ -Gastrointestinal bleed, low hemoglobin Acute, or Chronic, or Acute on Chronic? @ -Acute Uncomplicated (without systemic symptoms) or Complicated (systemic symptoms)? @ -complicated Side effects of treatment? @ -No Exacerbation, Progression, or Severe Exacerbation? @ -No Poses a threat to life or bodily function? How? (Chest pain, USA, [place], pneumonia, PE, COPD, DKA, ARF, appy, cholecystitis, CVA, Diverticulitis, Homicidal, Suicidal, threat to staff... and all critical care pts) @ -No - Lab Data Result diagrams: 11/22/23 11:38 11/22/23 11:38 Lab Results 11/22/23 11/22/23 11/22/23 Range/Units 11:38 11:38 11:38 WBC 8.1 (3.8-10.6) k/uL RBC 1.89 L (3.80-5.40) m/uL Hgb 5.2 L* D (11.4-16.0) gm/dL Hct 15.8 L* (34.0-46.0) % MCV 83.9 (80.0-100.0) fL MCH 27.7 (25.0-35.0) pg MCHC 33.0 (31.0-37.0) g/dL RDW 15.6 H (11.5-15.5) % Plt Count 319 (150-450) k/uL MPV 9.0 Neutrophils % 68 % Lymphocytes % 24 % Monocytes % 4 % Eosinophils % 1 % Basophils % 1 % Neutrophils # 5.6 (1.3-7.7) k/uL Lymphocytes # 1.9 (1.0-4.8) k/uL Monocytes # 0.3 (0-1.0) k/uL Eosinophils # 0.1 (0-0.7) k/uL Basophils # 0.1 (0-0.2) k/uL PT 10.4 (10.0-12.5) sec INR 0.9 (<1.2) APTT 20.0 L (22.0-30.0) sec Sodium 134 L (137-145) mmol/L Potassium 3.6 (3.5-5.1) mmol/L Chloride 104 (98-107) mmol/L Carbon Dioxide 21 L (22-30) mmol/L Anion Gap 9 mmol/L BUN 23 H (7-17) mg/dL Creatinine 0.68 (0.52-1.04) mg/dL Est GFR (CKD-EPI)AfAm >90 (>60 ml/min/1.73 sqM) Est GFR (CKD-EPI)NonAf >90 (>60 ml/min/1.73 sqM) Glucose 92 (74-99) mg/dL Plasma Lactic Acid Lele (0.7-2.0) mmol/L Calcium 8.7 (8.4-10.2) mg/dL Magnesium 1.8 (1.6-2.3) mg/dL Total Bilirubin 0.2 (0.2-1.3) mg/dL AST 21 (14-36) U/L ALT 13 (4-34) U/L Alkaline Phosphatase 24 L (38-126) U/L Total Protein 5.5 L (6.3-8.2) g/dL Albumin 3.6 (3.5-5.0) g/dL Lipase 92 (23-300) U/L Urine Color Urine Appearance (Clear) Urine pH (5.0-8.0) Ur Specific [place] (1.001-1.035) Urine Protein (Negative) Urine Glucose (UA) (Negative) Urine Ketones (Negative) Urine Blood (Negative) Urine Nitrite (Negative) Urine Bilirubin (Negative) Urine Urobilinogen (<2.0) mg/dL Ur Leukocyte Esterase (Negative) Urine WBC (0-5) /hpf Ur Squamous Epith Cells (0-4) /hpf Blood Type Blood Type Recheck Bld Type Recheck Status Antibody Screen Crossmatch Spec Expiration Date 11/22/23 11/22/23 11/22/23 Range/Units 11:38 11:38 12:28 WBC (3.8-10.6) k/uL RBC (3.80-5.40) m/uL Hgb (11.4-16.0) gm/dL Hct (34.0-46.0) % MCV (80.0-100.0) fL MCH (25.0-35.0) pg MCHC (31.0-37.0) g/dL RDW (11.5-15.5) % Plt Count (150-450) k/uL MPV Neutrophils % % Lymphocytes % % Monocytes % % Eosinophils % % Basophils % % Neutrophils # (1.3-7.7) k/uL Lymphocytes # (1.0-4.8) k/uL Monocytes # (0-1.0) k/uL Eosinophils # (0-0.7) k/uL Basophils # (0-0.2) k/uL PT (10.0-12.5) sec INR (<1.2) APTT (22.0-30.0) sec Sodium (137-145) mmol/L Potassium (3.5-5.1) mmol/L Chloride (98-107) mmol/L Carbon Dioxide (22-30) mmol/L Anion Gap mmol/L BUN (7-17) mg/dL Creatinine (0.52-1.04) mg/dL Est GFR (CKD-EPI)AfAm (>60 ml/min/1.73 sqM) Est GFR (CKD-EPI)NonAf (>60 ml/min/1.73 sqM) Glucose (74-99) mg/dL Plasma Lactic Acid Lele 0.9 (0.7-2.0) mmol/L Calcium (8.4-10.2) mg/dL Magnesium (1.6-2.3) mg/dL Total Bilirubin (0.2-1.3) mg/dL AST (14-36) U/L ALT (4-34) U/L Alkaline Phosphatase (38-126) U/L Total Protein (6.3-8.2) g/dL Albumin (3.5-5.0) g/dL Lipase (23-300) U/L Urine Color Colorless Urine Appearance Cloudy H (Clear) Urine pH 5.0 (5.0-8.0) Ur Specific [place] 1.020 (1.001-1.035) Urine Protein Negative (Negative) Urine Glucose (UA) Negative (Negative) Urine Ketones Negative (Negative) Urine Blood Negative (Negative) Urine Nitrite Negative (Negative) Urine Bilirubin Negative (Negative) Urine Urobilinogen <2.0 (<2.0) mg/dL Ur Leukocyte Esterase Large H (Negative) Urine WBC 11 H (0-5) /hpf Ur Squamous Epith Cells 4 (0-4) /hpf Blood Type A Positive Blood Type Recheck A Pos Bld Type Recheck Status No Antibody Screen NEGATIVE Crossmatch See Detail Spec Expiration Date 11/25/20237 Disposition Clinical Impression: GI bleed, Low hemoglobin, Rectal bleeding Disposition: OTHER INSTITUTION NOT DEFINED Referrals: None,Stated [Primary Care Provider] - 1-2 days - Out of Hospital Transfer - Req. Specs Out of Hospital Transfer - Requested Specifics: Other Emergency Center ([facility]
[2023-11-22 11:58] LABS: Appearance,Urine Cloudy (Clear); Basophils # (A) 0.1 k/uL (0-0.2); Basophils % (A) 1 %; Bilirubin,Urine Negative (Negative); Blood,Urine Negative (Negative); Color,Urine Colorless; Eosinophils # (A) 0.1 k/uL (0-0.7); Eosinophils % (A) 1 %; Glucose,Urine (UA) Negative (Negative); Ketones,Urine Negative (Negative); Leukocyte Esterase,Urine Large (Negative); Lymphocytes # (A) 1.9 k/uL (1.0-4.8); Lymphocytes % (A) 24 %; MCH 27.7 pg (25.0-35.0); MCV 83.9 fL (80.0-100.0); Monocytes # (A) 0.3 k/uL (0-1.0); Monocytes % (A) 4 %; Neutrophils # (A) 5.6 k/uL (1.3-7.7); Neutrophils % (A) 68 %; Nitrite,Urine Negative (Negative); Platelet Count 319 k/uL (150-450); Protein,Urine Negative (Negative); RBC 1.89 m/uL (3.80-5.40); RDW 15.6 % (11.5-15.5); Squamous Epithelial Cell,Urine 4 /hpf (0-4); Urobilinogen,Urine <2.0 mg/dL (<2.0); WBC 8.1 k/uL (3.8-10.6); WBC,Urine 11 /hpf (0-5)
[2023-11-22 12:02] LABS: ALT 13 U/L (4-34); AST 21 U/L (14-36); African American GFR (CKD) >90 (>60 ml/min/1.73 sqM); Albumin 3.6 g/dL (3.5-5.0); Alkaline Phosphatase 24 U/L (38-126); Anion Gap 9 mmol/L; Blood Urea Nitrogen 23 mg/dL (7-17); Calcium 8.7 mg/dL (8.4-10.2); Carbon Dioxide 21 mmol/L (22-30); Chloride 104 mmol/L (98-107); Glucose 92 mg/dL (74-99); HGB 5.2 gm/dL (11.4-16.0); Lipase 92 U/L (23-300); Magnesium 1.8 mg/dL (1.6-2.3); Non-African American GFR(CKD) >90 (>60 ml/min/1.73 sqM); Potassium 3.6 mmol/L (3.5-5.1); Sodium 134 mmol/L (137-145); Total Bilirubin 0.2 mg/dL (0.2-1.3); Total Protein 5.5 g/dL (6.3-8.2)
[2023-11-22 12:03] LABS: HCT 15.8 % (34.0-46.0)
[2023-11-22 12:14] LABS: INR 0.9 (<1.2); Prothrombin Time 10.4 sec (10.0-12.5)
[2023-11-22] MEDS: SODIUM CHLORIDE 0.9% 1,000 ML IV STA (12:48)
--- NOTE | 2023-11-22 13:11 | CT ---
EXAMINATION TYPE: CT abdomen pelvis w con CT DLP: 784.9 mGycm, Automated exposure control for dose reduction was used. DATE OF EXAM: 11/22/2023 12:19 PM COMPARISON: None CLINICAL INDICATION: Female, 43 years old with history of hx demetrice en y, ab pain, dark stools; Blood i n stool, Hx of demetrice-en-y. TECHNIQUE: Axial CT abdomen pelvis w con;Sagittal and coronal reformats were created on a separate w orkstation. Contrast used:100 ml mL of Isovue 300 with IV Contrast, (none if empty) Oral contrast used: without Oral Contrast (none if empty) FINDINGS: LOWER CHEST: Unremarkable ABDOMEN LIVER: Unremarkable GALLBLADDER AND BILE DUCTS: Unremarkable. PANCREAS: Unremarkable. SPLEEN: Unremarkable. ADRENAL GLANDS: Unremarkable. KIDNEYS AND URETERS: No evidence of hydronephrosis or renal calculus. The ureters are unremarkable. PELVIS BLADDER: Unremarkable REPRODUCTIVE: Bilateral tubal ligation clips. ABDOMEN & PELVIS STOMACH AND BOWEL: No evidence of bowel obstruction. Postsurgical changes to the bowel, no evidence f or obstruction. PERITONEUM/RETROPERITONEUM: No evidence of pneumoperitoneum or free fluid. VASCULATURE: No evidence of aortic aneurysm. MUSCULOSKELETAL: No acute osseous abnormalities, left hip arthroplasty appears intact. Postsurgical c hanges to the spine with hardware 3 L4-L5 hardware appears intact. LYMPH NODES: No gross evidence for lymphadenopathy. SOFT TISSUE/ABDOMINAL WALL: Unremarkable IMPRESSION: Postsurgical changes to the bowel without evidence for acute process. No evidence for obstruction.
[2023-11-22] MEDS: ACETAMINOPHEN TAB 500 MG TAB PO STA (17:29)
[2023-11-22] MEDS ORDERED: SODIUM CHLORIDE 0.9% 1,000 ML IV STA (18:04)
[2023-11-22 18:14] VITALS: TEMP 98.4
[2023-11-22 18:47] VITALS: BP 101/50
[2023-11-22 19:26] VITALS: PULSE 82; RESP 6
== END 2023-11-22 19:25 | disposition other institution (70) ==
LOC: EC 10:55
DX: K62.5 Hemorrhage of anus and rectum
CPT/HCPCS: 36415; 36430; 74177; 80053; 81001; 83605; 83690; 83735; 85025; 85610; 85730; 86850; 86900; 86901; 86920; 96360; 99285